=== PATIENT | female | born 1955 | race African-American/Black ===

== ENCOUNTER 2017-11-26 14:33 | Emergency (ER) | payer MEDICARE, MEDICAID ==
[~2017-11-26] VITALS: Ht 167.6 cm; Wt 73.0 kg
[~2017-11-26 14:33] MED LIST: ABILIFY; ZANAX; ZOFRAN; [UNRECOGNIZED DRUG - OTHER]
[2017-11-26] MEDS ORDERED: METHYLPREDNISOLONE SOD SUCC 125 MG/2 ML VIAL IV ONE (15:00)
[2017-11-26] MEDS ORDERED: DIPHENHYDRAMINE 50MG/ML VIAL IV ONE (15:00)
[2017-11-26 16:07] LABS: BASOPHILS % 0.6 % (0.0-2.0); EOSINOPHILS % 7.1 % (0.0-5.0); HEMATOCRIT. 37.7 % (36.0-48.0); HEMOGLOBIN. 12.7 g/dL (12.0-16.0); LYMPHOCYTES % 38.5 % (20.0-50.0); MEAN CORPUSCULAR HEMOGLOBIN 30.3 pg (28.0-32.0); MEAN CORPUSCULAR VOLUME 90.5 fL (81.0-99.0); MEAN PLATELET VOLUME 9.2 fl (7.4-10.4); NEUTROPHILS % 45.8 % (40.0-76.0); PLATELET 179 x1000/uL (130-400); RED BLOOD CELL COUNT 4.17 mill/uL (4.2-5.4); RED CELL DISTRIBUTION WIDTH 13.6 % (11.6-14.6)
[2017-11-26 16:10] LABS: CHLORIDE 107 mEq/L (98-107); PROTHROMBIN TIME 9.8 sec (9.1-11.1)
[2017-11-26 17:00] VITALS: BP 124/84
[2017-11-26] MEDS ORDERED: IOHEXOL-300 100 ML BOTTLE ONE (18:10)
== END 2017-11-26 17:45 | disposition home or self-care (01) ==
LOC: ER 16:57
DX: K11.20 Sialoadenitis, unspecified (principal); H92.02 Otalgia, left ear; T78.40XA Allergy, unspecified, initial encounter; T50.905A Adverse effect of unspecified drugs, medicaments and biological substances, initial encounter; Y92.89 Other specified places as the place of occurrence of the external cause
CPT/HCPCS: 36415; 70491; 80053; 83605; 85025; 85610; 96374; 96375; 99285; J1200; J2930; Q9967

== ENCOUNTER 2018-05-03 06:18 | Emergency (ER) | payer MEDICARE, MEDICAID ==
[~2018-05-03] VITALS: Ht 170.2 cm; Wt 82.0 kg
[2018-05-03] MEDS ORDERED: SODIUM CHLORIDE 0.9% 1,000 ML IV ONE (07:20)
[2018-05-03] MEDS ORDERED: DIPHENHYDRAMINE 50MG/ML VIAL IV ONE (07:30)
[2018-05-03] MEDS ORDERED: METOCLOPRAMIDE HCL 10MG/2ML VIAL IV ONE (07:30)
[2018-05-03 08:35] LABS: BASOPHILS % 0.6 % (0.0-2.0); EOSINOPHILS % 5.9 % (0.0-5.0); HEMATOCRIT. 38.5 % (36.0-48.0); HEMOGLOBIN. 12.6 g/dL (12.0-16.0); LYMPHOCYTES % 32.8 % (20.0-50.0); MEAN CORPUSCULAR HEMOGLOBIN 29.8 pg (28.0-32.0); MEAN CORPUSCULAR VOLUME 90.8 fL (81.0-99.0); MEAN PLATELET VOLUME 9.5 fl (7.4-10.4); MONOCYTES % 8.7 % (2.0-8.0); PLATELET 116 x1000/uL (130-400); RED BLOOD CELL COUNT 4.24 mill/uL (4.2-5.4); RED CELL DISTRIBUTION WIDTH 13.8 % (11.6-14.6)
[2018-05-03 08:41] LABS: CHLORIDE 106 mEq/L (98-107)
[2018-05-03 08:50] LABS: T4 FREE 0.92 ng/dL (0.76-1.46)
[2018-05-03 09:25] LABS: PROTHROMBIN TIME 10.1 sec (9.1-11.1)
[2018-05-03 11:14] LABS: CLARITY URINE CLEAR (CLEAR); COLOR URINE YELLOW (YELLOW); KETONES URINE NEGATIVE (NEGATIVE); LEUKOCYTE ESTERASE URINE NEGATIVE (NEGATIVE); NITRITE URINE NEGATIVE (NEGATIVE); OCCULT BLOOD URINE NEGATIVE (NEGATIVE); PROTEIN URINE NEGATIVE (NEGATIVE); SPECIFIC GRAVITY URINE 1.027 (1.005-1.030); UROBILINOGEN URINE 0.2 E.U./dL (0.2-1.0)
[2018-05-03 11:22] VITALS: BP 105/58
== END 2018-05-03 11:45 | disposition home or self-care (01) ==
LOC: ER 06:51
DX: R51 Headache (principal); R22.0 Localized swelling, mass and lump, head; F20.9 Schizophrenia, unspecified; F12.10 Cannabis abuse, uncomplicated; M48.00 Spinal stenosis, site unspecified; Z90.710 Acquired absence of both cervix and uterus
CPT/HCPCS: 36415; 70450; 71045; 80053; 81003; 84439; 84443; 85025; 85610; 96374; 96375; 99284; J1200; J2765; J7030

== ENCOUNTER → 2018-07-20 | Outpatient (CLI) | payer MEDICARE, MEDICAID | END | disposition home or self-care (01) | LOC: RAD 09:39 | PROVIDERS: ATTEND Internal Medicine Gastroenterology | DX: R07.81 Pleurodynia (principal) | CPT/HCPCS: 71046; 71110 ==

== ENCOUNTER 2018-07-25 08:37 | Emergency (ER) | payer MEDICARE, MEDICAID ==
[~2018-07-25] VITALS: Ht 167.6 cm; Wt 82.0 kg
[2018-07-25] MEDS ORDERED: KETOROLAC 15MG/ML VIAL IV ONE (12:00)
[2018-07-25] MEDS ORDERED: DIAZEPAM 5 MG/ML 2ML CPJ IV ONE (12:00)
[2018-07-25 13:40] VITALS: BP 106/65
== END 2018-07-25 13:44 | disposition home or self-care (01) ==
LOC: ER 08:37
DX: R07.81 Pleurodynia (principal); R11.2 Nausea with vomiting, unspecified; F31.9 Bipolar disorder, unspecified; F12.10 Cannabis abuse, uncomplicated; Z79.899 Other long term (current) drug therapy; Z90.710 Acquired absence of both cervix and uterus
CPT/HCPCS: 93005; 96374; 96375; 99283; J1885

== ENCOUNTER 2018-11-16 11:19 | Emergency (ER) | payer MEDICARE, MEDICAID ==
[~2018-11-16] VITALS: Ht 167.6 cm; Wt 66.0 kg
[2018-11-16 12:03] VITALS: BP 124/82
[2018-11-16] MEDS ORDERED: FLUORESCEIN SODIUM 1MG/STRIP LEFTEYE ONE (12:30)
== END 2018-11-16 13:52 | disposition home or self-care (01) ==
LOC: ER 11:19
DX: H10.022 Other mucopurulent conjunctivitis, left eye (principal); R21 Rash and other nonspecific skin eruption; F31.9 Bipolar disorder, unspecified; F12.10 Cannabis abuse, uncomplicated; Z90.710 Acquired absence of both cervix and uterus
CPT/HCPCS: 99283

== ENCOUNTER 2019-07-17 04:00 | Emergency (ER) | payer MEDICARE, MEDICAID ==
[~2019-07-17] VITALS: Ht 162.6 cm; Wt 81.0 kg
[2019-07-17 04:15] VITALS: BP 149/76
== END 2019-07-17 09:20 | disposition left against medical advice (07) ==
LOC: EDUNIT# 04:00 → ER 05:18
DX: R05 Cough (principal); Z53.21 Procedure and treatment not carried out due to patient leaving prior to being seen by health care provider

== ENCOUNTER 2024-04-15 03:03 | Emergency (ER) | payer MEDICARE, MEDICAID ==
[~2024-04-15] VITALS: Ht 172.7 cm; Wt 70.0 kg
[2024-04-15 03:07] VITALS: BP 135/88; PULSE 100; RESP 16; TEMP 99.6; O2SAT 96
== END 2024-04-15 05:38 | disposition left against medical advice (07) ==
LOC: ER 03:03
DX: R05.9 Cough, unspecified (principal); M54.9 Dorsalgia, unspecified; Z53.21 Procedure and treatment not carried out due to patient leaving prior to being seen by health care provider
CPT/HCPCS: 71045